=== PATIENT | female | born 1960 | race Caucasian/White ===

== ENCOUNTER → 2016-06-27 | Outpatient (CLI) | payer BC ==
[~2016-06-27] MED LIST: FUROSEMIDE 10 MG/ML 2 ML VIAL IV ONE
--- NOTE | 2016-06-27 15:08 | NM ---
EXAMINATION TYPE: NM lasix renogram DATE OF EXAM: 06/27/2016 2:52 PM COMPARISON: CT abdomen pelvis 22 May 2015 HISTORY: Left hydronephrosis Following administration of 11 mCi Tc 99m MAG3 with 20mg Lasix. Immediate images post injection FINDINGS: Split functions calculated at Left: 48.7%. Right: 51.3%. Max renal flow left: 7-8 minutes Max renal flow right: Slightly greater than 2 minutes minutes. Satisfactory accumulation of radiotracer within both renal collecting systems. After the administrati on of Lasix, there is prompt excretion from both collecting systems. Radiopharmaceutical accumulation show some delayed excretion on the left and is slow following Lasix administration. IMPRESSION: Findings compatible with ureteropelvic junction obstruction on the left.
== END | disposition home or self-care (01) ==
LOC: RADNMMAIN 13:09
PROVIDERS: ATTEND Urology
DX: N13.30 Unspecified hydronephrosis (principal)
CPT/HCPCS: 78708; A9562; J1940

== ENCOUNTER → 2017-03-24 | Outpatient (CLI) | payer BC ==
--- NOTE | 2017-03-25 10:29 | MM ---
Reason for exam: screening (asymptomatic). Last mammogram was performed 1 year and 8 months ago. History: Patient is postmenopausal. Family history of breast cancer in grandmother at age 50. Implants in both breasts, 1982. Physical Findings: A clinical breast exam by your physician is recommended on an annual basis and results should be correlated with mammographic findings. MG Screening Mammo Implant/CAD Bilateral CC, MLO, and ID view(s) were taken. Prior study comparison: July 19, 2015, mammogram. September 27, 2013, mammogram. The breast tissue is heterogeneously dense. This may lower the sensitivity of mammography. Finding: There are stable typically benign fine, diffuse calcifications in the right breast. There is a chronic nodularity in the right breast. Breast prothesis. No significant changes in finding since July 19, 2015 and September 27, 2013. ASSESSMENT: Benign, BI-RAD 2 RECOMMENDATION: Routine screening mammogram of both breasts in 1 year.
== END | disposition home or self-care (01) ==
LOC: RADMAMWWP 13:51
PROVIDERS: ATTEND Family Medicine
DX: Z12.31 Encounter for screening mammogram for malignant neoplasm of breast (principal)

== ENCOUNTER → 2019-03-03 | Outpatient (CLI) | payer BC ==
--- NOTE | 2019-03-04 10:29 | MM ---
Reason for exam: screening (asymptomatic). Last mammogram was performed 1 year and 11 months ago. History: Patient is postmenopausal. Family history of breast cancer in grandmother at age 50. Implants in both breasts, 1982. Physical Findings: A clinical breast exam by your physician is recommended on an annual basis and results should be correlated with mammographic findings. MG 3D Screen Mammo Imp/Cad Bilateral CC, MLO, and ID view(s) were taken. Prior study comparison: March 24, 2017, bilateral MG screening mammo implant/CAD. July 19, 2015, mammogram. The breast tissue is extremely dense which could obscure a lesion on mammography. Retropectoral silicone implants. Multiple areas of nodularity left breast not well demonstrated previously. ASSESSMENT: Incomplete: need additional imaging evaluation, BI-RAD 0 RECOMMENDATION: Ultrasound of the left breast. [facility] will attempt to contact patient to return for ultrasound.
== END | disposition home or self-care (01) ==
LOC: RADMAMWWP 07:22
PROVIDERS: ATTEND Family Medicine
DX: Z12.31 Encounter for screening mammogram for malignant neoplasm of breast (principal); Z98.82 Breast implant status
CPT/HCPCS: 77063; 77067

== ENCOUNTER → 2019-03-28 | Outpatient (CLI) | payer BC ==
--- NOTE | 2019-03-28 14:44 | USB ---
Reason for exam: additional evaluation requested from abnormal screening. History: Patient is postmenopausal. Family history of breast cancer in grandmother at age 50. Implants in both breasts, 1981. Physical Findings: Nurse Summary: 1.5cm hard lump left breast 5 o'clock at crease (nurse TM). US Breast Workup Limited LT Left complete breast ultrasound includes all four quadrants, the retroareolar region and axilla. Finding demonstrates a 0.4 x 0.2 x 0.4cm lesion too small to characterize at 2 o'clock, a 0.5 x 0.2 x 0.2cm lesion too small to characterize at 2 o'clock and a 0.4 x 0.2 x 0.2cm lesion too small to characterize at 4 o'clock. These results were verbally communicated with the patient and result sheet given to the patient on 03/28/19. ASSESSMENT: Probably benign, BI-RAD 3 RECOMMENDATION: Follow-up diagnostic mammogram and ultrasound of the left breast in 6 months. Manage patient on a clinical basis.
== END | disposition home or self-care (01) ==
LOC: RADUSWWP 12:41
PROVIDERS: ATTEND Family Medicine
DX: R92.8 Other abnormal and inconclusive findings on diagnostic imaging of breast (principal)

== ENCOUNTER → 2023-07-31 | Outpatient (CLI) | payer BC ==
--- NOTE | 2023-07-31 15:01 | US ---
EXAMINATION TYPE: US pelvic complete DATE OF EXAM: 07/31/2023 COMPARISON: NONE CLINICAL INDICATION: Female, 62 years old with history of R10.2 PELVIC AND PERINEAL PAIN; Intermitten t pelvic pain x few weeks TECHNIQUE: . Transabdominal sonographic images of the pelvis were acquired. Date of LMP: Unknown EXAM MEASUREMENTS: Uterus: 6.9 X 2.1 X 4.2 cm Endometrial Stripe: 0.2 cm Right Ovary: 2.1 X 2.0 X 1.3 cm Left Ovary: 1.7 X 2.6 X 1.1 cm 1. Uterus: Anteverted wnl 2. Endometrium: wnl 3. Right Ovary: wnl 4. Left Ovary: wnl 5. Bilateral Adnexa: wnl 6. Posterior cul-de-sac: Fluid Urinary bladder is sonolucent. The posterior wall is normal. IMPRESSION: 1. No acute ultrasound pelvis abnormality
== END | disposition home or self-care (01) ==
LOC: RADUSWWP 13:35
PROVIDERS: ATTEND Family Medicine
DX: R10.2 Pelvic and perineal pain (principal)
CPT/HCPCS: 76856